=== PATIENT | male | born 1955 | race Caucasian/White ===

== ENCOUNTER 2017-05-09 21:32 | Emergency (ER) | payer OTHER ==
[~2017-05-09] VITALS: Ht 182.9 cm; Wt 69.1 kg
[2017-05-09 21:32] VITALS: BP 104/68
== END 2017-05-09 22:42 | disposition left against medical advice (07) ==
LOC: ED 21:53
DX: J98.01 Acute bronchospasm (principal); M54.9 Dorsalgia, unspecified; G89.29 Other chronic pain; F17.200 Nicotine dependence, unspecified, uncomplicated
CPT/HCPCS: 99281

== ENCOUNTER 2017-05-22 08:50 | Inpatient (IN) | payer SELFPAY ==
[~2017-05-22] VITALS: Ht 182.9 cm; Wt 64.6 kg
[2017-05-22 09:39] LABS: HEMATOCRIT 42.4 % (39.2-51.8); HEMOGLOBIN 14.4 g/dL (13.7-18.0); WHITE BLOOD COUNT 11.6 x10^3/uL (3.4-10)
[2017-05-22 09:49] LABS: BLOOD UREA NITROGEN 7 mg/dL (7-18)
[2017-05-22] MEDS ORDERED: SODIUM CHLORIDE 0.9% 1,000ML IVBOLUS ONE (10:30)
[2017-05-22] MEDS ORDERED: SODIUM CHLORIDE FLUSH 10ML SYR IVF ONE (10:30)
[2017-05-22] MEDS ORDERED: SODIUM CHLORIDE 0.9% 1,000 ML IV ONE (12:04)
[2017-05-22] MEDS ORDERED: ONDANSETRON 2MG/ML, 2ML ONE (12:24)
[2017-05-22] MEDS ORDERED: MORPHINE SULFATE 4 MG/ML, 1ML ONE (12:24)
[2017-05-22] MEDS ORDERED: MORPHINE SULFATE 4 MG/ML, 1ML IVPush PRN (12:30)
[2017-05-22] MEDS ORDERED: ONDANSETRON 2MG/ML, 2ML IVPush PRN ×2 (12:30→14:00)
[2017-05-22] MEDS ORDERED: POTASSIUM CHLORIDE 20 MEQ, MAGNESIUM SULFATE 1 GM, FOLIC ACID 1 MG, THIAMINE 100 MG, MV... IV SCH (12:30)
[2017-05-22] MEDS ORDERED: ENOXAPARIN 40 MG/0.4 ML SQ SCH (14:00)
[2017-05-22] MEDS ORDERED: GUAIFENESIN/DM 200-20MG, 10ML UDC PO PRN (14:00)
[2017-05-22] MEDS ORDERED: ONDANSETRON ODT 4 MG PO PRN (14:00)
[2017-05-22] MEDS ORDERED: POLYETHYLENE GLYCOL 17 GM PACKET PO PRN (14:00)
[2017-05-22] MEDS ORDERED: LABETALOL 5MG/ML, 20ML IVPush PRN (14:00)
[2017-05-22] MEDS ORDERED: MAGNESIUM SULFATE PMX 2GM/50ML 50 ML IV ONE (14:00)
[2017-05-22] MEDS: HYDROcodone/APAP 5/325 TABLET PO PRN ×3 (14:35→22:42)
[2017-05-22] MEDS ORDERED: ZOLPIDEM 5MG TABLET PO PRN (18:00)
[2017-05-22 18:48] VITALS: BP 160/91
[2017-05-22] MEDS: NICOTINE 21 MG/24 HR PATCH.TD24 TD SCH (19:52)
[2017-05-22 20:30] LABS: DAU SCREEN DISCLAIMER
[2017-05-22] MEDS: FAMOTIDINE 20 MG/2 ML IVPush SCH (21:30)
[2017-05-23 01:51] VITALS: BP 163/90
[2017-05-23] MEDS: HYDROcodone/APAP 5/325 TABLET PO PRN ×2 (05:31→09:55)
[2017-05-23 07:20] VITALS: BP 173/90
[2017-05-23 08:41] LABS: BLOOD UREA NITROGEN 9 mg/dL (7-18)
[2017-05-23 08:44] LABS: HEMATOCRIT 40.2 % (39.2-51.8); HEMOGLOBIN 13.5 g/dL (13.7-18.0); WHITE BLOOD COUNT 5.3 x10^3/uL (3.4-10)
[2017-05-23] MEDS: FAMOTIDINE 20 MG/2 ML IVPush SCH (08:50)
[2017-05-23] MEDS: NICOTINE 21 MG/24 HR PATCH.TD24 TD SCH (08:50)
[2017-05-23] MEDS ORDERED: SENNA/DOCUSATE TABLET PO SCH (09:00)
[2017-05-23] MEDS ORDERED: NICOTINE 21 MG/24 HR PATCH.TD24 TD SCH (09:00)
[2017-05-23] MEDS ORDERED: HYDROcodone/APAP 5/325 TABLET PO PRN (11:00)
[2017-05-23] MEDS ORDERED: OXYcodone/APAP 5/325MG TABLET PO PRN (12:00)
== END 2017-05-23 12:00 | disposition left against medical advice (07) | DRG 552 ==
LOC: ED 10:07 → EDIP 12:04 → 4NOR 13:36 → 5SO 16:04 → 4WST 16:07
PROVIDERS: ADMIT Internal Medicine; ATTEND Internal Medicine
DX: M51.26 Other intervertebral disc displacement, lumbar region (principal); E87.1 Hypo-osmolality and hyponatremia; I10 Essential (primary) hypertension; D72.829 Elevated white blood cell count, unspecified; D75.89 Other specified diseases of blood and blood-forming organs; E78.5 Hyperlipidemia, unspecified; F17.210 Nicotine dependence, cigarettes, uncomplicated; F10.220 Alcohol dependence with intoxication, uncomplicated; G89.29 Other chronic pain; Y90.0 Blood alcohol level of less than 20 mg/100 ml; R33.9 Retention of urine, unspecified; Z71.6 Tobacco abuse counseling; Z80.1 Family history of malignant neoplasm of trachea, bronchus and lung; Z82.0 Family history of epilepsy and other diseases of the nervous system; Z91.14 Patient's other noncompliance with medication regimen
CPT/HCPCS: 36415; 71010; 74000; 80048; 80307; 81001; 81003; 82040; 82607; 82746; 83735; 84100; 84443; 85025; 93005; 96361; 96374; 96375; J1650; J2405; J3411; J3475; J3480; J7042; G0479; J7030; S0028